=== PATIENT | female | born 1995 | race Caucasian/White ===

== ENCOUNTER 2022-12-31 19:34 | Emergency (ER) | payer MEDICAID ==
[~2022-12-31] VITALS: Wt 49.9 kg
[2022-12-31 20:12] LABS: HEMATOCRIT 44.1 % (37.0-47.0); MEAN CELL VOLUME 100.2 fl (81.0-99.0); MEAN CORPUSCULAR HGB 26.8 pg (27.0-31.0); MEAN CORPUSCULAR HGB CONC 26.8 g/dl (33.0-37.0); MEAN PLATELET VOLUME 9.3 fl (9.6-12.3); PLATELET COUNT AUTOMATED 562 10*3/uL (130-400); RED CELL DISTRI WIDTH 17.2 % (0-14.5)
[2022-12-31 20:13] LABS: MANUAL DIFF REFLEX YES
[2022-12-31 20:20] LABS: ACT PARTIAL THROMBO TIME 30.5 SECONDS (20.0-32.1); INTERNATIONAL NORM RATIO 0.9 (2.0-3.5)
[2022-12-31 20:35] LABS: OVALOCYTES FEW; PLATELET SUFFICIENCY HIGH (NORMAL); TOTAL CELLS COUNTED 100 #CELLS
[2022-12-31 20:36] LABS: ALKALINE PHOSPHATASE 140 U/L (46-116); BUN 37 mg/dl (9-23); CPK 62 U/L (34-171); MYOGLOBIN 138.2 ng/ml (13-71); SGPT/ALT 21 U/L (10-49); TOTAL PROTEIN 6.6 gm/dL (6.0-8.0)
[2022-12-31 20:36] LABS: POLYCHROMASIA SLIGHT; SPHEROCYTES FEW; STOMATOCYTE FEW
[2022-12-31 20:42] LABS: CHLORIDE 69 mmol/L (98-107); POTASSIUM 7.2 mmol/L (3.4-5.1)
[2022-12-31 21:07] LABS: ARTERIAL BLOOD GAS PH 6.917 (7.35-7.45)
[2022-12-31 21:41] LABS: BILIRUBIN Negative (Negative); BLOOD 3+ (Negative); CLARITY Turbid (Clear); COLOR Red (Yellow); GLUCOSE 3+ (Negative); KETONE 1+ (Negative); LEUKO ESTERASE Trace (Negative); NITRITE Negative (Negative); SPECIFIC GRAVITY 1.025 (1.001-1.030); UROBILINOGEN 0.2 E.U./dl (0.0-1.0)
[2022-12-31 21:48] LABS: URINE AMPHETAMINES Positive (1000ng/ml); URINE BARBITURATES Negative (200ng/ml); URINE BENZODIAZEPINES Negative (200ng/ml); URINE CANNABINOIDS (THC) Negative (50ng/ml); URINE COCAINE Negative (300ng/ml); URINE METHADONE Negative (300ng/ml); URINE OPIATES Negative (300ng/ml); URINE PHENCYCLIDINE Negative (25ng/ml)
[2022-12-31 22:00] LABS: BACTERIA 2+; RBC TNTC rbc/hpf (0-2)
[2022-12-31 22:39] LABS: ARTERIAL BLOOD GAS PO2 54.9 (80-90)
[2022-12-31 22:42] LABS: ABG BASE EXCESS -23.6 mmol/L (-2.0-2.0); ARTERIAL BLOOD GAS PH 7.071 (7.35-7.45)
== END 2022-12-31 23:00 | disposition short-term general hospital (02) ==
LOC: ED 19:34
PROVIDERS: Emergency Medicine
DX: A41.9 Sepsis, unspecified organism (principal); R65.20 Severe sepsis without septic shock; N17.9 Acute kidney failure, unspecified; E11.10 Type 2 diabetes mellitus with ketoacidosis without coma; E87.5 Hyperkalemia; E83.39 Other disorders of phosphorus metabolism; E87.8 Other disorders of electrolyte and fluid balance, not elsewhere classified; D72.829 Elevated white blood cell count, unspecified

== ENCOUNTER 2023-02-03 23:43 | Emergency (ER) | payer MEDICAID ==
[2023-02-04 00:30] LABS: BASO # 0.1 10*3/uL (0.0-0.1); BASO % 0.8 % (0.0-1.0); EOS # 0.1 10*3/uL (0.0-0.4); EOS % 1.3 % (1.0-4.0); HEMATOCRIT 37.9 % (37.0-47.0); LYMPH # 2.2 10*3/uL (1.3-4.4); LYMPH % 30.6 % (27.0-41.0); MEAN CELL VOLUME 80.1 fl (81.0-99.0); MEAN CORPUSCULAR HGB 24.3 pg (27.0-31.0); MEAN CORPUSCULAR HGB CONC 30.3 g/dl (33.0-37.0); MONO # 0.6 10*3/uL (0.1-1.0); MONO % 9.1 % (3.0-9.0); NEUT # 4.1 10*3/uL (2.3-7.9); NEUT % 57.9 % (47.0-73.0); PLATELET COUNT AUTOMATED 650 10*3/uL (130-400); RED BLOOD COUNT 4.73 10*6/uL (4.10-5.10); RED CELL DISTRI WIDTH 16.3 % (0-14.5); WHITE BLOOD COUNT 7.1 10*3/uL (4.8-10.8)
[2023-02-04 00:46] LABS: ALKALINE PHOSPHATASE 123 U/L (46-116); BUN 14 mg/dl (9-23); CHLORIDE 97 mmol/L (98-107); POTASSIUM 4.1 mmol/L (3.4-5.1); SGPT/ALT 27 U/L (10-49); TOTAL PROTEIN 8.6 gm/dL (6.0-8.0)
[2023-02-04 00:47] LABS: ETHYL ALCOHOL < 3.0 mg/dl (<3)
== END 2023-02-04 02:28 | disposition home or self-care (01) ==
LOC: ED 23:43
PROVIDERS: Internal Medicine
DX: E11.65 Type 2 diabetes mellitus with hyperglycemia (principal); D50.9 Iron deficiency anemia, unspecified; R00.0 Tachycardia, unspecified; D75.839 Thrombocytosis, unspecified